=== PATIENT | female | born 1945 | race Hispanic/Latino ===

== ENCOUNTER → 2018-04-28 | Outpatient (CLI) | payer OTHER ==
--- NOTE | 2018-04-28 18:09 | Diagnostic Imaging Report ---
PROCEDURE:US RETROPERITONEAL ( KIDNEY ). COMPARISON:None. INDICATIONS:CHRONIC KIDNEY DISEASE TECHNIQUE: Tiwari-scale and color sonographic images of the bilateral kidneys and bladder where obtained in transverse and longitudinal planes. FINDINGS: RIGHT KIDNEY: 7.8 cm, cortex 0.9 cm Cysts: None Solid masses: None Stones: 0.6 x 0.4 x 0.6 cm hyperechoic focus with mild shadowing in the mid lateral aspect Hydronephrosis: None Echogenicity: Increased LEFT KIDNEY: 8.5 cm, cortex 1.3 cm Cysts: None Solid masses: None Stones: None Hydronephrosis: None Echogenicity: Increased Bladder: No focal lesions. Prevoid bladder volume: 21.0 mL Postvoid bladder volume: none. CONCLUSION: 1. Mild bilateral renal atrophy and cortical thinning, with increased cortical echogenicity consistent with medical renal disease. 2. No hydronephrosis or obstruction. 3. 0.6 cm hyperechoic focus in the right kidney likely represents a nonobstructing calculus. 4. No significant postvoid residual, however, bladder was not full, despite the patient drinking fluid prior to exam. Jorge Alberto Rolon M.D. Dictated by: Jorge Alberto Rolon M.D. on 04/28/2018 at 18:14 Electronically approved by: Jorge Alberto Rolon M.D. on 04/28/2018 at 18:14
--- NOTE | 2018-04-28 18:10 | Diagnostic Imaging Report ---
PROCEDURE:URINARY BLADDER ULTRASOUND COMPARISON:None. INDICATIONS:CHRONIC KIDNEY DISEASE CONCLUSION: Please refer to renal ultrasound performed at the same date and time for full dictated report. Jorge Alberto Rolon M.D. Dictated by: Jorge Alberto Rolon M.D. on 04/28/2018 at 18:15 Electronically approved by: Jorge Alberto Rolon M.D. on 04/28/2018 at 18:15
== END ==
LOC: US 13:30
PROVIDERS: ATTEND Internal Medicine Nephrology
DX: N18.3 Chronic kidney disease, stage 3 (moderate) (principal)
CPT/HCPCS: 76770; 76857